=== PATIENT | male | born 1995 | race Caucasian/White ===

== ENCOUNTER 2019-08-02 20:40 | Emergency (ER) | payer OTHER ==
[~2019-08-02 20:40] MED LIST: Iopamidol 370 76% 100 ML VIAL ONE
[2019-08-02 21:25] LABS: #Basophils 0.1 thou/uL (0.0-0.2); #Eosinphils 0.2 thou/uL (0.0-0.7); #Lymphocytes 2.3 thou/uL (1.20-3.40); #Monocytes 0.8 thou/uL (0.11-0.59); #Neutrophils 9.3 thou/uL (1.40-6.50); %Basophils 0.7 % (0.0-1.0); %Eosinophils 1.5 % (0.0-10.0); %Lymphocytes 17.9 % (21.0-51.0); %Monocytes 6.2 % (0.0-10.0); %Neutrophils 73.8 % (42.0-75.0); Hemoglobin 15.5 g/dL (14.0-18.0); Mean Corpuscular HGB CONC 35.3 g/dL (32.0-36.0); Mean Corpuscular Hemoglobin 32.8 pg (27.0-31.0); Platelet Count 288 thou/uL (130-400); RBC Distribution Width 11.2 % (11.5-14.5); Red Blood Cell (RBC) Count 4.73 mill/uL (4.70-6.10); White Blood Cell (WBC) Count 12.7 thou/uL (4.8-10.8)
--- NOTE | 2019-08-02 21:25 | RAD ---
XR Tib Fib Lt Leg 2 View History: Injury Comparison: None. Findings: The ankle trimalleolar fracture is again visualized. The proximal mid tibia and fibula are intact. Impression: Trimalleolar ankle fracture with soft tissue swelling.
--- NOTE | 2019-08-02 21:25 | RAD ---
XR Ankle Lt 3 View STANDARD History: Injury Comparison: None. Findings: Trimalleolar fracture with valgus angulation and lateral talar shift approximately 1 cm. Th ere is also a sagittally oriented fracture of the posterior lateral talar dome. Possible cuboid fracture. Impression: 1. Trimalleolar fracture with lateral talar shift and valgus stimulation. 2. Sagittally oriented fracture lateral talar dome. 3. Possible intra-articular cuboid fracture at the tarsometatarsal joints.
[2019-08-02] MEDS ORDERED: Ondansetron PF 4 MG/2 ML Vial ONE (21:37)
[2019-08-02] MEDS ORDERED: Fentanyl 100 MCG/2 ML VIAL ONE (21:37)
--- NOTE | 2019-08-02 21:42 | CT ---
CT Brain WO Con History: Trauma Comparison: None. Findings: No acute hemorrhage or infarct. No midline shift or mass effect. Ventricular size and extra -axial CSF spaces are normal. The calvarium is intact. Mucous retention cyst of the left sphenoid sinus. Mastoids are clear. Globes are intact. Impression: No acute posttraumatic intracranial sequelae.
--- NOTE | 2019-08-02 21:45 | CT ---
CT Cervical Spine WO Con History: Injury. Trauma Comparison: None. Findings: The occipital condyles are intact. The odontoid process is intact. No acute traumatic facet joint widening. Focal ossification supraspinous ligament at T1. Visualized ribs are intact. Transverse processes are intact. Spinous processes are intact. Lung apices are clear. Impression: No acute fracture or malalignment of the cervical spine.
[2019-08-02 21:47] LABS: ALT (SGPT) 36 U/L (8-55); AST (SGOT) 43 U/L (5-34); Albumin 4.8 g/dL (3.5-5.0); Alcohol 125 mg/dL (Less than 10); Alkaline Phosphatase 54 U/L (40-110); Anion Gap 18 mmol/L (10-20); BUN (Urea Nitrogen) 13 mg/dL (8.9-20.6); Calc. Creatinine Clearance 0 mL/min (70-130); Calcium 9.2 mg/dL (7.8-10.44); Carbon Dioxide 21 mmol/L (22-29); Chloride 102 mmol/L (98-107); Estimated GFR-MDRD 87; Globulin 2.3 g/dL (2.4-3.5); Glucose 104 mg/dL (70-105); Potassium 3.8 mmol/L (3.5-5.1); Protein, Total 7.1 g/dL (6.0-8.3); Sodium 137 mmol/L (136-145)
[2019-08-02] MEDS ORDERED: Ketamine 50 MG/ML (10ML VIAL) ONE (21:50)
--- NOTE | 2019-08-02 21:52 | CT ---
CT Chest Abd Pelvis W Con Limited CT thoracic spine with contrast Limited CT lumbar lumbosacral spine with contrast History: Trauma Comparison: None. Findings: Incidental note is made of an azygos fissure. The lungs are clear. No pneumothorax. No effu krissy. No pulmonary contusion. Subtle superficial soft tissue contusion over the right lateral hemiabdomen and of the right flank. N o contrast extravasation. Plate-screw fixation of the right clavicle. The sternum and manubrium are intact. No retrosternal hem atoma. No acute displaced rib fracture. The thoracic spine transverse processes are intact. The visualized s capula are intact. The lumbar spine transverse processes are intact. No SI joint widening. The obturator rings are intact. Femoral heads and necks are intact. No sacral f racture. Thoracic spine and lumbar spine are without fracture. Liver, spleen, pancreas, kidneys, adrenal glands, retroperitoneum, mesentery, bowel are all without a cute injury. No free intraperitoneal gas or fluid. Impression: No solid organ injury of the chest, abdomen, or pelvis. Code: CR. Dr. Lopez notified of findings via telephone for the entire exam at 9:48 PM
--- NOTE | 2019-08-02 23:40 | RAD ---
XR Ankle Lt 2 View History: Post reduction Comparison: Radiograph same day Findings: Improved alignment trimalleolar fracture. Impression: Improved alignment trimalleolar fracture.
[2019-08-02] MEDS ORDERED: Ketorolac Tromethamine 30 MG/ML VIAL ONE (23:45)
[2019-08-03] MEDS ORDERED: HYDROcodone/Acetaminophen 10/325 mg Tablet ONE (00:36)
== END 2019-08-03 00:38 | disposition home or self-care (01) ==
LOC: ERS 20:40
DX: S82.852A Displaced trimalleolar fracture of left lower leg, initial encounter for closed fracture (principal); S30.811A Abrasion of abdominal wall, initial encounter; S50.311A Abrasion of right elbow, initial encounter; V29.9XXA Motorcycle rider (driver) (passenger) injured in unspecified traffic accident, initial encounter
CPT/HCPCS: 27818; 36415; 70450; 71260; 72125; 74177; 80053; 80307; 85025; 96361; 96374; 96375; 99152; J1885; J2405; J3010; L0120; Q9967